=== PATIENT | female | born 1955 | race Caucasian/White ===

== ENCOUNTER 2017-06-02 12:14 | Day surgery (SDC) | payer OTHER ==
[2017-06-02] MEDS ORDERED: FENTAnyl 50 MCG/ML VIAL (13:51)
[2017-06-02] MEDS ORDERED: MIDAZOLAM 1 MG/ML 2 ML INJ ×3 (13:52)
== END 2017-06-02 16:35 | disposition home or self-care (01) ==
LOC: GIL 12:14
DX: K57.30 Diverticulosis of large intestine without perforation or abscess without bleeding (principal); K64.8 Other hemorrhoids; K59.00 Constipation, unspecified
CPT/HCPCS: 45378